=== PATIENT | male | born 1945 | race Caucasian/White ===

== ENCOUNTER 2017-05-06 15:28 | Outpatient (CLI) | payer OTHER ==
--- NOTE | 2017-05-07 17:49 | XRAY Report ---
THREE-VIEW LUMBAR SPINE: 05/06/2017 CLINICAL INDICATION: Back pain. FINDINGS: AP, lateral, coned-down views of the lumbar spine demonstrate mild degenerative disc and facet disease, stable from 10/18/2013. There is no evidence of compression fracture. The bowel gas pattern is normal. IMPRESSION: STABLE MILD DEGENERATIVE CHANGES. JOB #: [id number] EXT JOB #: [id number] [facility]
== END 2017-05-06 15:29 | disposition home or self-care (01) ==
LOC: DI.N 15:28
PROVIDERS: ATTEND Family Medicine
DX: M51.36 Other intervertebral disc degeneration, lumbar region (principal); M47.896 Other spondylosis, lumbar region
CPT/HCPCS: 72100

== ENCOUNTER 2020-08-25 12:45 | Outpatient (CLI) | payer MEDICARE, OTHER | END 2020-08-25 12:46 | disposition home or self-care (01) | LOC: COV 12:45 | PROVIDERS: ATTEND Surgery | DX: Z01.812 Encounter for preprocedural laboratory examination (principal); K21.9 Gastro-esophageal reflux disease without esophagitis; Z20.822 Contact with and (suspected) exposure to COVID-19 ==

== ENCOUNTER 2020-08-30 10:12 | Day surgery (SDC) | payer MEDICARE, OTHER ==
[2020-08-30] MEDS ORDERED: LACTATED RINGERS 1,000 ML IV ONE (10:52)
[2020-08-30] MEDS ORDERED: LIDO GARGLE 30 ML BOTTLE ONE (12:23)
[2020-08-30] MEDS ORDERED: fentaNYL 250 MCG/5 ML VIAL ONE (12:31)
[2020-08-30] MEDS ORDERED: MIDAZOLAM 2 MG/2 ML VIAL ONE ×2 (12:31→12:52)
[2020-08-30] MEDS ORDERED: LIDO GARGLE 30 ML BOTTLE PO ONE (12:39)
[2020-08-30 13:40] VITALS: BP 139/85
== END 2020-08-30 10:13 | disposition home or self-care (01) ==
LOC: SDS 10:12
PROVIDERS: ATTEND Surgery
PROC: 0DBK8ZZ Excision of Ascending Colon, Via Natural or Artificial Opening Endoscopic (ICD-10-PCS; principal; 2020-08-30 11:15)
PROC: 0DB48ZX Excision of Esophagogastric Junction, Via Natural or Artificial Opening Endoscopic, Diagnostic (ICD-10-PCS; 2020-08-30 11:15)
DX: Z12.11 Encounter for screening for malignant neoplasm of colon (principal); D12.2 Benign neoplasm of ascending colon; K21.00 Gastro-esophageal reflux disease with esophagitis, without bleeding; H54.7 Unspecified visual loss; Z95.828 Presence of other vascular implants and grafts; Z87.19 Personal history of other diseases of the digestive system; Z87.891 Personal history of nicotine dependence; Z85.46 Personal history of malignant neoplasm of prostate
CPT/HCPCS: 43239; 45385; A9270; J3010; J7120; 88305

== ENCOUNTER 2021-05-14 08:23 | Outpatient (CLI) | payer MEDICARE, OTHER ==
--- NOTE | 2021-05-14 12:20 | XRAY Report ---
PROCEDURE: Chest 2 View X-Ray INDICATIONS: PREHYPERTENSION, WHEEZING TECHNIQUE: 2 view(s) of the chest. COMPARISON: None. FINDINGS: Surgical changes and devices: None. Lungs and pleura: No pleural effusions or pneumothorax. Lungs are clear. Mediastinum: Mediastinal contours are normal. Heart size is normal. Bones and chest wall: No suspicious bony abnormalities. Soft tissues appear unremarkable. IMPRESSION: No acute cardiopulmonary disease process. Reviewed by: Krys Gandhi MD, PhD on 05/14/2021 12:18 PM PST Approved by: Krys Gandhi MD, PhD on 05/14/2021 12:18 PM [facility] Station ID: [id number]
== END 2021-05-14 08:24 | disposition home or self-care (01) ==
LOC: DI 08:23
PROVIDERS: ATTEND Family Medicine
DX: R03.0 Elevated blood-pressure reading, without diagnosis of hypertension (principal); R06.2 Wheezing

== ENCOUNTER 2021-08-11 07:59 | Emergency (ER) | payer MEDICARE, OTHER ==
--- NOTE | 2021-08-11 08:14 | ED Physician Documentation ---
PD HPI CHEST PAIN - Stated complaint Stated Complaint: HEARTBURN, DIZZY, CHEST PX - History obtained from History obtained from: Patient - History of Present Illness Timing - onset: How many hours ago (1) Timing - onset during: Light activity (He was out taking a walk through a trail near his house when developed chest pain, shortness of breath and lightheadedness. He states he had to sit down and bystanders saw him and helped him to his house. Persisting with chest pain on route here.) Timing - duration: Hours (1) Timing - details: Abrupt onset, Still present Pain level max: 8 Pain level now: 5 Quality: Aching, Dull, Pain Location: Right chest Radiation: Right upper extremity Associated symptoms: Shortness of air, Nausea, Feeling faint / dizzy. No: Vomiting, Palpitations, Cough Similar symptoms before: Has not had sx before (He states he has been recently active with mowing the lawn 2 days ago and washing cars yesterday without any chest pain. He had some mild dyspnea with activity.) Recently seen: Not recently seen Review of Systems Constitutional: denies: Fever, Chills Nose: denies: Rhinorrhea / runny nose, Congestion Throat: denies: Sore throat Cardiac: reports: Chest pain / pressure. denies: Palpitations, Pedal edema, Calf pain Respiratory: reports: Dyspnea. denies: Cough GI: reports: Nausea. denies: Abdominal Pain, Vomiting Musculoskeletal: denies: Back pain Neurologic: reports: Generalized weakness. denies: Near syncope, Syncope, Altered mental status, Headache PD PAST MEDICAL HISTORY - Past Medical History Cardiovascular: None (Denies prior episodes of heart disease. Not on any home medications.), Murmur Respiratory: None Neuro: None Endocrine/Autoimmune: None - Present Medications Home Medications: Ambulatory Orders Medication Instructions Recorded Confirmed No Known Home Medications 08/11/21 08/11/21 - Allergies Allergies/Adverse Reactions: Allergies Allergy/AdvReac Type Severity Reaction Status Date / Time Penicillins Allergy Rash Verified 08/11/21 08:20 - Living Situation Living Situation: reports: With spouse/s.o. Living Arrangement: reports: At home - Social History Does the pt smoke?: No Does the pt drink ETOH?: No Does the pt have substance abuse?: No - Family History Family history: reports: CAD PD ED PE NORMAL - Vitals Vital signs reviewed: Yes - General General: Alert and oriented X 3, No acute distress, Well developed/nourished - HEENT HEENT: Moist mucous membranes, Pharynx benign - Neck Neck: Supple, no meningeal sign, No adenopathy, No JVD - Cardiac Cardiac: RRR, Other (1/6 murmur left chest) - Respiratory Respiratory: No respiratory distress, Clear bilaterally, Other (small area of muscular tenderness right pectoral area. ) - Abdomen Abdomen: Soft, Non tender, No organomegaly - Back Back: No CVA TTP - Derm Derm: Normal color, Warm and dry - Extremities Extremities: Normal ROM s pain, No edema, No calf tenderness / cord - Neuro Neuro: Alert and oriented X 3, No motor deficit, Normal speech Eye Opening: Spontaneous Motor: Obeys Commands Verbal: Oriented GCS Score: 15 - Psych Psych: Normal mood, Normal affect Results - Vitals Vitals: Vital Signs - 24 hr 08/11/21 08/11/21 08/11/21 08:05 08:49 09:19 Temperature 37.2 C Heart Rate 103 H 77 69 Respiratory 12 13 11 L Rate Blood Pressure 146/107 H 110/82 H 106/82 H O2 Saturation 96 92 94 08/11/21 08/11/21 08/11/21 09:30 10:00 10:30 Temperature 36.3 C L Heart Rate 67 66 68 Respiratory 13 10 L 13 Rate Blood Pressure 114/83 H 112/79 136/87 H O2 Saturation 95 97 96 08/11/21 08/11/21 08/11/21 11:00 11:30 12:00 Temperature Heart Rate 67 67 66 Respiratory 13 14 14 Rate Blood Pressure 120/82 H 131/86 H 129/87 H O2 Saturation 96 96 96 08/11/21 08/11/21 08/11/21 12:30 13:00 13:30 Temperature 36.6 C Heart Rate 63 65 60 Respiratory 12 14 11 L Rate Blood Pressure 126/70 127/83 H 122/76 O2 Saturation 96 95 95 08/11/21 14:00 Temperature Heart Rate 71 Respiratory 15 Rate Blood Pressure 139/89 H O2 Saturation 96 Oxygen O2 Source Room air - EKG (time done) 08:04 Rate: Rate (enter#) (93) Rhythm: NSR (with some baseline wandering) [place]: Normal Intervals: Normal ND, RBBB QRS: LVH Ischemia: ST elevation c/w ischemia (possible inferiorly) 08:28 Rate: Rate (enter#) (93) Rhythm: NSR [place]: Normal Intervals: Normal ND, RBBB QRS: LVH Ischemia: ST elevation c/w ischemia (subtle in V1/V2) 09:54 Rate: Rate (enter#) (63) Rhythm: NSR [place]: Normal Intervals: Normal ND, RBBB QRS: LVH Ischemia: ST elevation c/w ischemia (V1/V2 subtle), T wave inversion (t waves have flipped to inversion since prior ECG hour ago. ) - Labs Labs: Laboratory Tests 08/11/21 08/11/21 08/11/21 08:13 08:13 08:13 WBC 14.6 H RBC 5.05 Hgb 16.1 Hct 46.3 MCV 91.7 MCH 31.9 H MCHC 34.8 RDW 13.0 Plt Count 152 MPV 10.7 Neut # (Auto) 11.1 H Lymph # (Auto) 2.4 [place] # (Auto) 0.6 Eos # (Auto) 0.4 Baso # (Auto) 0.1 Absolute Nucleated RBC 0.00 Nucleated RBC % 0.0 Sodium 140 Potassium 3.8 Chloride 107 Carbon Dioxide 22 Anion Gap 11.0 BUN 34 H Creatinine 1.0 Estimated GFR (MDRD) 73 L Glucose 143 H Calcium 9.0 Total Bilirubin 1.2 H AST 53 H ALT 64 H Alkaline Phosphatase 67 Troponin I High Sens 58.3 H* Total Protein 6.5 L Albumin 4.2 Globulin 2.3 Albumin/Globulin Ratio 1.8 Lipase 33 SARS-CoV-2 (PCR) 08/11/21 08/11/21 08/11/21 09:15 10:26 11:26 WBC RBC Hgb Hct MCV MCH MCHC RDW Plt Count MPV Neut # (Auto) Lymph # (Auto) [place] # (Auto) Eos # (Auto) Baso # (Auto) Absolute Nucleated RBC Nucleated RBC % Sodium Potassium Chloride Carbon Dioxide Anion Gap BUN Creatinine Estimated GFR (MDRD) Glucose Calcium Total Bilirubin AST ALT Alkaline Phosphatase Troponin I High Sens 80.8 H* 174.1 H* Total Protein Albumin Globulin Albumin/Globulin Ratio Lipase SARS-CoV-2 (PCR) NOT DETECTED - Rads (name of study) chest xry Radiology: Prelim report reviewed (no acute process), See rad report PD MEDICAL DECISION MAKING - ED course Complexity details: re-evaluated patient (Pain is improving nitroglycerin and beta-srini. Blood pressure and heart rate are stable. Repeat EKG is showing still subtle changes associated with ice LVH by consider mild ST elevations.), considered differential (Symptoms are certainly concerning for acute UT or heart process. EKG is subtly abnormal but not quite ST elevations. Will check labs and treat as if ACS.), d/w patient, d/w travel service consultant (Freddy, Cardiology for , who accepts transfer pending bed available, and agrees with current treatment. ) ED course: Third EKG in the department about an hour after the second is now showing flipped T waves. There is a slightly more distinct ST elevation in lead V1 and V2 associated with the LVH however. This does sound likely acute UT and initial troponins are elevated and increasing. I had the EKG sent to [facility] emergency room. I talked with the emergency physician there who reviewed as well. He states the EKG was not distinct enough to call STEMI. He therefore cannot accept transfer as a STEMI. We will search for bed capability at other facilities. The patient is treated as if acute UT with heparin drip, statin, Plavix, aspirin, beta-srini. Departure - Departure Disposition: 02 Transfer Acute Care Hosp Clinical Impression: Non-ST elevated myocardial infarction (non-STEMI) Chest pain Qualifiers: Chest pain type: precordial pain Qualified Code(s): R07.2 - Precordial pain Condition: Stable
[2021-08-11 08:28] LABS: BASOPHILS # (AUTO) 0.1 10^3/uL (0.0-0.1); BASOPHILS % (AUTO) 0.6 %; EOSINOPHILS # (AUTO) 0.4 10^3/uL (0.0-0.7); EOSINOPHILS % (AUTO) 2.7 %; HCT - HEMATOCRIT 46.3 % (42.0-52.0); HGB - HEMOGLOBIN 16.1 g/dL (14.0-18.0); LYMPHOCYTES # (AUTO) 2.4 10^3/uL (1.5-3.5); LYMPHOCYTES % (AUTO) 16.1 %; MEAN CORPUSCULAR HEMOGLOBIN 31.9 pg (27.0-31.0); MEAN CORPUSCULAR HGB CONC 34.8 g/dL (32.0-36.0); MEAN CORPUSCULAR VOLUME 91.7 fL (80.0-94.0); MEAN PLATELET VOLUME 10.7 fL (7.4-11.4); MONOCYTES # (AUTO) 0.6 10^3/uL (0.0-1.0); NEUTROPHILS # (AUTO) 11.1 10^3/uL (1.5-6.6); NEUTROPHILS % (AUTO) 75.6 %; PLT - PLATELET COUNT 152 10^3/uL (130-450); RED BLOOD COUNT 5.05 10^6/uL (4.70-6.10); WHITE BLOOD COUNT 14.6 x10^3/uL (4.8-10.8)
[2021-08-11] MEDS ORDERED: NITROGLYCERIN SL 0.4 MG TABLET SL STA (08:30)
[2021-08-11] MEDS ORDERED: ASPIRIN CHEW 81 MG TABLET PO STA (08:30)
[2021-08-11] MEDS ORDERED: METOPROLOL 5 MG/5 ML VIAL IVP STA (08:36)
--- NOTE | 2021-08-11 08:42 | XRAY Report ---
PROCEDURE: Chest 1 View X-Ray INDICATIONS: Chest pain TECHNIQUE: One view of the chest was acquired. COMPARISON: 05/14/2021 FINDINGS: Surgical changes and devices: None. Lungs and pleura: No pleural effusions or pneumothorax. Lungs are clear. Mediastinum: Mediastinal contours appear normal. Heart size is normal. Bones and chest wall: No suspicious bony lesions. Overlying soft tissues appear unremarkable. IMPRESSION: No evidence acute pulmonary process. Reviewed by: Figueroa Girard MD on 08/11/2021 7:41 AM [facility] Approved by: Figueroa Girard MD on 08/11/2021 7:41 AM [facility] Station ID: [id number]
[2021-08-11 08:44] LABS: ALBUMIN 4.2 g/dL (3.2-5.5); ALBUMIN/GLOBULIN RATIO 1.8 (1.0-2.2); BILIRUBIN,TOTAL 1.2 mg/dL (0.2-1.0); POTASSIUM 3.8 mmol/L (3.5-5.0); TOTAL PROTEIN 6.5 g/dL (6.7-8.2)
[2021-08-11] MEDS ORDERED: ATORVASTATIN 40 MG TABLET PO STA (10:12)
[2021-08-11] MEDS ORDERED: CLOPIDOGREL 75 MG TABLET PO STA (10:12)
[2021-08-11] MEDS: HEPARIN 25000UNITS/500ML (D5W) 25,000 UNIT/500 ML BAG IV SCH (10:19)
[2021-08-11] MEDS ORDERED: CLOPIDOGREL 300 MG TABLET PO STA (16:47)
--- NOTE | 2021-08-11 17:48 | ED Physician Documentation ---
ED Addendum - Addendum Addendum: 08/11/21 17:[address] Stover at 5 PM shift change. Briefly 76-year-old gentleman came in with chest pain, rising troponins, and EKGs intermediate for STEMI albeit my understanding is the Dr. Stover conversed with cardiology at [facility] and they reviewed the EKGs and felt he was not fitting criteria for same. I ordered scheduled meds. Notified by RN at approximately 525 that she was worried that he had more ST elevation on the monitor although she did state that he was pain- free at this time. Another EKG was done and he has submillimeter ST elevation in V1 and V2 and the inverted inferior T waves have normalized. He is currently waitlisted at both [facility] and the [facility]. There are no beds available anywhere else we have called. Twelve-lead EKG done at 1734 hrs. discloses normal sinus rhythm with a right bundle branch block and left anterior fascicular block. Very mild ST elevation in V1 and V2. Signs of LVH. As discussed above previously flipped T waves in the inferior leads have now become upright. Critical care time 32 minutes for today's date in direct patient care, discussion with consultants and medication management as well as documentation. Time excludes EKG interpretation.
[2021-08-11] MEDS: METOPROLOL TARTRATE 50 MG TABLET PO SCH (20:27)
[2021-08-12 05:26] LABS: HCT - HEMATOCRIT 44.1 % (42.0-52.0); HGB - HEMOGLOBIN 15.3 g/dL (14.0-18.0); MEAN CORPUSCULAR HEMOGLOBIN 31.6 pg (27.0-31.0); MEAN CORPUSCULAR HGB CONC 34.7 g/dL (32.0-36.0); MEAN CORPUSCULAR VOLUME 91.1 fL (80.0-94.0); MEAN PLATELET VOLUME 10.4 fL (7.4-11.4); RED BLOOD COUNT 4.84 10^6/uL (4.70-6.10); RED CELL DISTRIBUTION WIDTH 12.9 % (12.0-15.0); WHITE BLOOD COUNT 8.9 x10^3/uL (4.8-10.8)
[2021-08-12 05:34] LABS: CALCIUM 8.5 mg/dL (8.5-10.3); CREATININE 0.7 mg/dL (0.6-1.2); POTASSIUM 3.9 mmol/L (3.5-5.0)
[2021-08-12] MEDS: ASPIRIN CHEW 81 MG TABLET PO SCH (08:25)
[2021-08-12] MEDS: ATORVASTATIN 40 MG TABLET PO SCH (08:25)
[2021-08-12] MEDS: METOPROLOL TARTRATE 50 MG TABLET PO SCH ×2 (08:25→20:30)
[2021-08-12] MEDS: CLOPIDOGREL 75 MG TABLET PO SCH (08:25)
--- NOTE | 2021-08-12 17:18 | ED Physician Documentation ---
ED Addendum - Addendum Addendum: 08/12/21 17:17 76-year-old male who presented to the emergency department yesterday after collapsing on a walk-in contusing his chest wall. He has had an NSTEMI and he is awaiting placement at both [facility] and [facility]. He is pain-free has no specific complaints today and his troponin has trended down.
[2021-08-12] MEDS: HEPARIN 25000UNITS/500ML (D5W) 25,000 UNIT/500 ML BAG IV SCH (17:37)
[2021-08-12] MEDS ORDERED: ACETAMINOPHEN 500 MG TABLET PO STA (20:25)
[2021-08-13] MEDS: METOPROLOL TARTRATE 50 MG TABLET PO SCH (08:27)
[2021-08-13] MEDS: CLOPIDOGREL 75 MG TABLET PO SCH (08:27)
[2021-08-13] MEDS: ASPIRIN CHEW 81 MG TABLET PO SCH (08:27)
[2021-08-13] MEDS: ATORVASTATIN 40 MG TABLET PO SCH (08:27)
--- NOTE | 2021-08-13 15:47 | ED Physician Documentation ---
ED Addendum - Addendum Addendum: 08/13/21 15:47 Still waiting for a bed, not immediately available. Still pain-free. Now that it is Friday we have echo available and prelim report shows EF of 45 to 50%, mild concentric LVH, grade 1 diastolic dysfunction, moderate LAE, bicuspid aortic valve with severe aortic stenosis with peak mean pressure of 71/45 respectively and aortic valve area of 0.91 cm. Trace to mild MR, mild TR, no effusion. Borderline large aortic root at 3.9 cm. 08/13/21 16:16 [facility] called us and I spoke with Dr. Luba Nails there at 4:15 PM and she accepted the patient noting that Dr. Hawthorne will actually be the accepting physician after shift change. She confirmed that they do do TAVR's and accepted him to a [facility] telemetry bed pending cardiology consultation. Updated by phone with pt permission. 08/13/21 16:22 [facility] Condition guarded but stable Diagnoses 1. NSTEMI 2. Severe aortic stenosis 3. Syncope 08/13/21 16:53
[2021-08-13 16:05] VITALS: BP 140/107
== END 2021-08-13 18:02 | disposition short-term general hospital (02) ==
LOC: ED 07:59
DX: I21.4 Non-ST elevation (NSTEMI) myocardial infarction (principal); I35.0 Nonrheumatic aortic (valve) stenosis
CPT/HCPCS: 36415; 71045; 80048; 80053; 83690; 84484; 85025; 85027; 85730; 87635; 93005; 93306; 96365; 96366; 96375; 96376; 99285; 99291; 99292; A9270

== ENCOUNTER 2022-11-06 09:55 | Outpatient (CLI) | payer MEDICARE, OTHER ==
[2022-11-06 10:07] LABS: BASOPHILS # (AUTO) 0.1 10^3/uL (0.0-0.1); BASOPHILS % (AUTO) 0.9 %; EOSINOPHILS # (AUTO) 0.3 10^3/uL (0.0-0.7); EOSINOPHILS % (AUTO) 3.3 %; HGB - HEMOGLOBIN 16.1 g/dL (14.0-18.0); LYMPHOCYTES # (AUTO) 2.2 10^3/uL (1.5-3.5); LYMPHOCYTES % (AUTO) 23.5 %; MEAN CORPUSCULAR HEMOGLOBIN 30.8 pg (27.0-31.0); MEAN CORPUSCULAR HGB CONC 33.5 g/dL (32.0-36.0); MEAN PLATELET VOLUME 10.1 fL (7.4-11.4); MONOCYTES # (AUTO) 0.5 10^3/uL (0.0-1.0); MONOCYTES % (AUTO) 4.9 %; NEUTROPHILS # (AUTO) 6.1 10^3/uL (1.5-6.6); NEUTROPHILS % (AUTO) 67.2 %; PLT - PLATELET COUNT 178 10^3/uL (130-450); RED BLOOD COUNT 5.22 10^6/uL (4.70-6.10); WHITE BLOOD COUNT 9.1 x10^3/uL (4.8-10.8)
== END 2022-11-06 09:56 | disposition home or self-care (01) ==
LOC: LAB 09:55
PROVIDERS: ATTEND Ophthalmology
DX: H57.12 Ocular pain, left eye (principal)
CPT/HCPCS: 36415; 85025; 85651; 86140